=== PATIENT | male | born 1970 | race Two or more races ===

== ENCOUNTER 2017-10-05 08:05 | Outpatient (CLI) | payer OTHER | END 2017-10-05 17:00 | disposition home or self-care (01) | LOC: RAD 08:05 | DX: M54.2 Cervicalgia (principal) ==

== ENCOUNTER → 2017-10-05 | Outpatient (CLI) | payer OTHER | END | disposition home or self-care (01) | LOC: SONOGRAMA 08:13 | DX: M75.112 Incomplete rotator cuff tear or rupture of left shoulder, not specified as traumatic (principal) ==

== ENCOUNTER 2024-11-28 04:25 | Inpatient (IN) | payer OTHER ==
[~2024-11-28] VITALS: Ht 177.8 cm; Wt 72.6 kg
--- NOTE | 2024-11-28 04:42 | NUR ---
PTE ALERTA Y ORIENTADO X3 REFIERE VENIR A JESSICA DEBIDO A QUE EL MISMO LLEVA DESDE EL VIERNES CON DOLOR GENERALIZADO EN EL CUERPO, DOLOR DE MARIUSZ. ESCALOFRIOS, NAUSEAS Y ANDRADE PRODUCIDO FIEBRE. SE MIDEN S/V Y SE UBICA.
--- NOTE | 2024-11-28 05:52 | NUR ---
SE RECIBE PTE MASCULINO DE 54 YRS ALERTA CONCIENTE Y TRANQUILO EN COMOPABNIA DE FAMILAR. PTE ES EVALUADO POR EL QUIE ORDENA TRATAMIENTO LA CUAL SE EJECUTA.
[2024-11-28 06:58] LABS: HEMATOCRIT 43.1 % (39.0-48.0); HEMOGLOBIN 14.9 g/dL (13-16.00); MEAN CELL VOLUME 84.9 fL (80.0-100.00); MEAN CORPUSCULAR HEMOGLOBIN 29.4 pg (27.00-32.0); MEAN CORPUSCULAR HGB CONC 34.6 g/dl (32.0-36.0); RED BLOOD COUNT 5.07 M/uL (4.00-6.00); RED CELL DISTRIBUTION WIDTH 13.9 % (11.5-14.5)
[2024-11-28 07:28] LABS: COVID-19 AG NEGATIVE (NEGATIVE); INFLUENZA A AG NEGATIVE (NEGATIVE)
[2024-11-28 07:43] LABS: PLATELET COUNT 58 K/uL (150-450)
[2024-11-28] MEDS ORDERED: 0.9 % SODIUM CHLORIDE 1,000 ML IV ONE (08:00)
[2024-11-28 12:40] LABS: HEMATOCRIT 43.5 % (39.0-48.0); HEMOGLOBIN 14.7 g/dL (13-16.00); MEAN CELL VOLUME 85.7 fL (80.0-100.00); MEAN CORPUSCULAR HEMOGLOBIN 28.9 pg (27.00-32.0); MEAN CORPUSCULAR HGB CONC 33.7 g/dl (32.0-36.0); RED BLOOD COUNT 5.08 M/uL (4.00-6.00); RED CELL DISTRIBUTION WIDTH 14.2 % (11.5-14.5)
[2024-11-28 13:38] LABS: PLATELET COUNT 51 K/uL (150-450)
[2024-11-28] MEDS ORDERED: PANTOPRAZOLE SODIUM 40 MG/VIAL VIAL IV SCH (18:23)
[2024-11-28] MEDS ORDERED: 0.9 % SODIUM CHLORIDE 1,000 ML IV SCH (18:30)
[2024-11-28] MEDS ORDERED: ACETAMINOPHEN 500 MG GEL..CAP PO PRN (18:30)
[2024-11-28 19:16] VITALS: BP 145/84
[2024-11-28 19:20] LABS: INR 1.02; PARTIAL THROMBOPLASTIN TIME 32.5 SECONDS (22.0-34.0); PROTHROMBIN TIME 11.1 SECONDS (9.0-11.5)
[2024-11-28 19:24] LABS: ALBUMIN 3.5 gm/dL (3.4-5.0); BILIRUBIN TOTAL 0.48 mg/dL (0.3-1.2); CALCIUM 8.8 mg/dL (8.5-10.1); CREATININE SERUM 0.85 mg/dL (0.70-1.30); GFR 93.93; GLOBULINA 4.3 G/DL (2.4-3.5); POTASSIUM 3.57 mEq/L (3.5-5.1); TOTAL PROTEIN 7.8 gm/dL (6.4-8.2)
[2024-11-28 20:49] LABS: URINE BACTERIA 18.3 uL (0.0-1933); URINE EPITHELIAL CELLS 3.1 uL (0.0-38.8); URINE RBC 23.4 uL (0.0-20.8); URINE WBC 5.3 uL (0.0-23.2)
[2024-11-28 21:15] LABS: URINE APPEARANCE Clear; URINE BILIRRUBIN Small (NEGATIVE); URINE BLOOD Small; URINE COLOR Dark Yellow; URINE GLUCOSE Negative (NEGATIVE); URINE KETONE 15 (NEGATIVE); URINE LEUKOCYTE Negative; URINE NITRATE Negative
[2024-11-28 21:16] LABS: URINE CAST 0.14 uL (0.0-1.40); URINE PROTEIN 300 (NEGATIVE)
[2024-11-28 22:48] VITALS: BP 140/80; O2SAT 98
[2024-11-29 03:03] VITALS: BP 91/54
[2024-11-29 06:24] LABS: HEMATOCRIT 40.3 % (39.0-48.0); HEMOGLOBIN 13.7 g/dL (13-16.00); MEAN CELL VOLUME 85.4 fL (80.0-100.00); RED BLOOD COUNT 4.72 M/uL (4.00-6.00); RED CELL DISTRIBUTION WIDTH 13.7 % (11.5-14.5)
[2024-11-29 06:36] LABS: PLT IN CITRATE 48 K/uL (150-450)
[2024-11-29 07:24] LABS: PLATELET COUNT 56 K/uL (150-450)
[2024-11-29 09:13] VITALS: BP 115/74; O2SAT 98
[2024-11-29 18:06] VITALS: BP 125/75; O2SAT 100
[2024-11-30 00:18] VITALS: BP 123/74
[2024-11-30 06:02] LABS: HEMATOCRIT 40.9 % (39.0-48.0); HEMOGLOBIN 13.7 g/dL (13-16.00); MEAN CELL VOLUME 85.6 fL (80.0-100.00); MEAN CORPUSCULAR HEMOGLOBIN 28.6 pg (27.00-32.0); MEAN CORPUSCULAR HGB CONC 33.4 g/dl (32.0-36.0); RED BLOOD COUNT 4.77 M/uL (4.00-6.00)
[2024-11-30 06:41] LABS: PLATELET COUNT 76 K/uL (150-450)
[2024-11-30 06:43] LABS: ALBUMIN 3.1 gm/dL (3.4-5.0); BILIRUBIN TOTAL 0.35 mg/dL (0.3-1.2); CALCIUM 8.3 mg/dL (8.5-10.1); CREATININE SERUM 0.83 mg/dL (0.70-1.30); GFR 96.55; GLOBULINA 3.8 G/DL (2.4-3.5); PHOSPHOROUS 3.1 mg/dL (2.5-4.9); POTASSIUM 4.5 mEq/L (3.5-5.1); TOTAL PROTEIN 6.9 gm/dL (6.4-8.2)
[2024-11-30 09:35] VITALS: BP 117/67; O2SAT 99
[2024-11-30 17:25] VITALS: BP 114/70; O2SAT 100
[2024-12-01 02:19] VITALS: BP 124/84; O2SAT 96
[2024-12-01 09:39] LABS: HEMATOCRIT 41.1 % (39.0-48.0); HEMOGLOBIN 13.7 g/dL (13-16.00); MEAN CELL VOLUME 86.3 fL (80.0-100.00); MEAN CORPUSCULAR HEMOGLOBIN 28.8 pg (27.00-32.0); MEAN CORPUSCULAR HGB CONC 33.4 g/dl (32.0-36.0); RED BLOOD COUNT 4.77 M/uL (4.00-6.00); RED CELL DISTRIBUTION WIDTH 13.7 % (11.5-14.5)
[2024-12-01 10:41] LABS: PLATELET COUNT 103 K/uL (150-450)
[2024-12-01 15:40] VITALS: BP 135/72; O2SAT 99
== END 2024-12-01 19:08 | disposition home or self-care (01) | DRG 866 ==
LOC: ER 04:26 → MEDI 18:29
PROVIDERS: General Practice; Internal Medicine Infectious Disease; ADMIT Internal Medicine; ATTEND Internal Medicine
PROC: BW40ZZZ Ultrasonography of Abdomen (ICD-10-PCS; principal; 2024-11-28)
DX: A90 Dengue fever [classical dengue] (principal); D69.6 Thrombocytopenia, unspecified; B34.9 Viral infection, unspecified; Z88.6 Allergy status to analgesic agent; Z88.0 Allergy status to penicillin; R16.0 Hepatomegaly, not elsewhere classified